=== PATIENT | female | born 1955 | race Caucasian/White ===

== ENCOUNTER 2023-12-24 07:30 | Inpatient (IN) | payer BC, OTHER ==
[~2023-12-24] VITALS: Ht 167.6 cm; Wt 58.5 kg
[2023-12-24 07:37] VITALS: BP_SYST 102; PULSE 55; RESP 16; TEMP 97.7; O2SAT 98
[2023-12-24 08:14] LABS: BASOPHILS % (AUTO) 0.6 % (0.0-2.0); EOSINOPHILS # (AUTO) 0.1 K/uL (0.0-0.4); EOSINOPHILS % (AUTO) 2.2 % (0.0-4.0); HEMATOCRIT 36.8 % (36-48); HEMOGLOBIN 12.4 g/dL (12.0-16.0); LYMPHOCYTES % (AUTO) 15.2 % (20.5-51.5); MEAN CORPUSCULAR HEMOGLOBIN 30 pg (27-31); MEAN CORPUSCULAR HGB CONC 34 % (32-36); MEAN CORPUSCULAR VOLUME 89 fL (79.0-98.0); MONOCYTES # (AUTO) 0.6 K/uL (0.0-1.0); MONOCYTES % (AUTO) 8.6 % (1.7-9.3); NEUTROPHILS # (AUTO) 4.8 K/uL (1.8-7.7); NEUTROPHILS % (AUTO) 73.4 % (40.0-70.0); PLATELET COUNT (AUTO) 157 K/uL (130-430); RED BLOOD CELL COUNT(AUTO) 4.13 MIL/uL (4.2-6.2); RED CELL DISTRIBUTION WIDTH 13.3 % (9.0-15.0); WHITE BLOOD COUNT (AUTO) 6.6 K/uL (4.8-10.8)
[2023-12-24 08:46] LABS: ANION GAP 10 (5-15); CALCIUM 9.1 mg/dL (8.4-11.0); CARBON DIOXIDE 26 mmol/L (23-29); CHLORIDE 105 mmol/L (98-107); CREATININE 1.15 mg/dL (0.55-1.30); GFR AFRICAN AMERICAN 60 mL/min (>90); GLUCOSE 117 mg/dL (74-106); SODIUM SERUM 141 mmol/L (136-145); UREA NITROGEN, BLOOD 15 mg/dL (8-21)
[2023-12-24 08:48] LABS: GFR NON AFRICAN-AMERICAN 50 mL/min (>90)
[2023-12-24] MEDS ORDERED: ACETAMINOPHEN 325 MG TABLET PO PRN (11:30)
[2023-12-24] MEDS ORDERED: ONDANSETRON HCL 4 MG/2 ML VIAL IVP PRN (11:30)
[2023-12-24] MEDS ORDERED: LORazepam 2 MG/ML VIAL IVP PRN (11:30)
[2023-12-24] MEDS ORDERED: APIX5TAB PO (14:42)
[2023-12-24] MEDS ORDERED: LEVO137T32 PO (14:42)
[2023-12-24] MEDS ORDERED: FLEC50TA2 PO (14:50)
[2023-12-24 14:52] VITALS: BP_SYST 108; PULSE 68; RESP 14; TEMP 98; O2SAT 96
[2023-12-24] MEDS: NACL 0.9% 1,000 ML IV SCH (15:21)
[2023-12-24] MEDS: NORMAL SALINE 5 ML DISP.SYRIN IVF SCH (15:21)
[2023-12-24 16:00] VITALS: BP_SYST 107; PULSE 68; RESP 14; TEMP 98.2; O2SAT 96
[2023-12-24 20:30] VITALS: BP_SYST 108; PULSE 66; RESP 18; TEMP 98.4; O2SAT 97
[2023-12-24] MEDS: APIXABAN 2.5 MG TABLET PO SCH (22:20)
[2023-12-25] VITALS: BP_SYST 121; PULSE 65; RESP 18; TEMP 98.2; O2SAT 97
[2023-12-25] MEDS: LEVOTHYROXINE SODIUM 0.137 MG TABLET PO SCH (06:09)
[2023-12-25 07:40] LABS: BASOPHILS % (AUTO) 0.5 % (0.0-2.0); EOSINOPHILS # (AUTO) 0.1 K/uL (0.0-0.4); EOSINOPHILS % (AUTO) 2.4 % (0.0-4.0); LYMPHOCYTES # (AUTO) 1.6 K/uL (1.0-5.5); LYMPHOCYTES % (AUTO) 33.8 % (20.5-51.5); MEAN CORPUSCULAR HEMOGLOBIN 30 pg (27-31); MEAN CORPUSCULAR HGB CONC 33 % (32-36); MEAN CORPUSCULAR VOLUME 89 fL (79.0-98.0); MONOCYTES # (AUTO) 0.4 K/uL (0.0-1.0); MONOCYTES % (AUTO) 8.7 % (1.7-9.3); NEUTROPHILS # (AUTO) 2.6 K/uL (1.8-7.7); NEUTROPHILS % (AUTO) 54.6 % (40.0-70.0); PLATELET COUNT (AUTO) 153 K/uL (130-430); RED BLOOD CELL COUNT(AUTO) 4.03 MIL/uL (4.2-6.2); RED CELL DISTRIBUTION WIDTH 13.3 % (9.0-15.0); WHITE BLOOD COUNT (AUTO) 4.7 K/uL (4.8-10.8)
[2023-12-25 07:53] VITALS: BP_SYST 126; PULSE 63; RESP 18; TEMP 97.7; O2SAT 97
[2023-12-25 07:58] LABS: CALCIUM 8.9 mg/dL (8.4-11.0); CREATININE 0.87 mg/dL (0.55-1.30); POTASSIUM 4.5 mmol/L (3.5-5.1)
[2023-12-25 08:00] VITALS: O2SAT 97
[2023-12-25] MEDS: FLECAINIDE ACETATE 50 MG TABLET (TAMBOCOR) PO SCH (08:28)
[2023-12-25 08:45] LABS: BILIRUBIN,URINE NEGATIVE (NEGATIVE); BLOOD, URINE NEGATIVE (NEGATIVE); CLARITY/URINE CLEAR (CLEAR); COLOR,URINE YELLOW (YELLOW); GLUCOSE,URINE NEGATIVE (NEGATIVE); KETONES,URINE NEGATIVE (NEGATIVE); LEUKOCYTE ESTERASE ,URINE NEGATIVE (NEGATIVE); NITRITE, URINE NEGATIVE (NEGATIVE); PROTEIN URINE NEGATIVE (NEGATIVE); UROBILINOGEN,URINE 0.2 (0.2-1.0)
[2023-12-25 11:51] VITALS: BP_SYST 141; PULSE 73; RESP 18; TEMP 98.1; O2SAT 97
[2023-12-25 15:46] VITALS: BP_SYST 120; PULSE 60; RESP 18; TEMP 98.3; O2SAT 97
[2023-12-25 17:15] VITALS: BP_SYST 129; PULSE 65; RESP 18; TEMP 98.1; O2SAT 97
== END 2023-12-25 19:20 | disposition home health service (06) | DRG 310 ==
LOC: SED 07:30 → STU 10:20
PROVIDERS: ADMIT Preventive Medicine Preventive Medicine/Occupational Environmental Medicine; ATTEND Preventive Medicine Preventive Medicine/Occupational Environmental Medicine
DX: I44.0 Atrioventricular block, first degree (principal); I25.10 Atherosclerotic heart disease of native coronary artery without angina pectoris; R73.9 Hyperglycemia, unspecified; I48.0 Paroxysmal atrial fibrillation; D72.819 Decreased white blood cell count, unspecified; E03.9 Hypothyroidism, unspecified; Z88.5 Allergy status to narcotic agent; Z88.0 Allergy status to penicillin; Z79.899 Other long term (current) drug therapy; Z95.2 Presence of prosthetic heart valve; R00.1 Bradycardia, unspecified
CPT/HCPCS: 36415; 70450-TC; 71045; 80048; 81001; 81003; 83880; 84484; 85025; 93005; 93306; 93880; 97112-GP; 97116-GP; 99285; G0378